=== PATIENT | female | born 1970 | race Caucasian/White ===

== ENCOUNTER 2020-06-06 14:37 | Emergency (ER) | payer BC ==
[2020-06-06 14:41] VITALS: BP 131/80; PULSE 99; RESP 16; TEMP 97.7
[2020-06-06] MEDS ORDERED: LIDOCAINE 1% INJ 10MG/ML (20 ML MDV) SQ ONE (14:50)
[2020-06-06] MEDS ORDERED: DIPH,PERTUS(ACELL)TETVAC-LF 0.5 ML VIAL IM ONE (15:00)
--- NOTE | 2020-06-06 15:00 | ED ---
Wound/Laceration HPI - General Chief Complaint: Wound/Laceration Stated Complaint: L Leg Injury Time Seen by Provider: 06/06/20 14:49 Source: patient Mode of arrival: wheelchair Limitations: no limitations - History of Present Illness Initial Comments: Patient is a 49-year-old female presenting to emergency Department with chief complaint of laceration. Patient states she was cleaning under vacuumed using a steak knife. Patient states she has no lacerated the anterior aspect of the left lower leg. Patient reports there was significant amount of bleeding which has since resolved. Patient states the amount of bleeding concerned her so she came to the ED. Patient states the pain is minimal at this time. Denies any blood thinners. Tetanus not up-to-date. Denies numbness or tingling. States this happened about one hour prior to arrival. - Related Data Allergies Allergy/AdvReac Type Severity Reaction Status Date / Time No Known Allergies Allergy Verified 06/06/20 14:38 Review of Systems ROS Statement: Those systems with pertinent positive or pertinent negative responses have been documented in the HPI. ROS Other: All systems not noted in ROS Statement are negative. Past Medical History Past Medical History: No Reported History History of Any Multi-Drug Resistant Organisms: None Reported Past Surgical History: No Surgical Hx Reported Past Psychological History: No Psychological Hx Reported Smoking Status: Never smoker Past Alcohol Use History: None Reported Past Drug Use History: None Reported General Exam Limitations: no limitations General appearance: alert, in no apparent distress Head exam: Present: atraumatic, normocephalic, normal inspection Eye exam: Present: normal appearance, PERRL, EOMI Pupils: Present: normal accommodation ENT exam: Present: normal exam, normal oropharynx, mucous membranes moist Neck exam: Present: normal inspection, full ROM. Absent: tenderness Respiratory exam: Present: normal lung sounds bilaterally. Absent: respiratory distress, wheezes, rales Cardiovascular Exam: Present: regular rate, normal rhythm, normal heart sounds Extremities exam: Present: full ROM. Absent: normal inspection (Once under laceration on the anterior aspect of the left lower trauma. This is very superficial mild. No sutures needed.), tenderness Back exam: Present: normal inspection, full ROM. Absent: tenderness Neurological exam: Present: alert, oriented X3 Psychiatric exam: Present: normal affect, normal mood Skin exam: Present: warm, dry, intact, normal color Course Vital Signs 06/06/20 14:38 Temperature 97.7 F Pulse Rate 99 Respiratory 16 Rate Blood Pressure 131/80 O2 Sat by Pulse 97 Oximetry Medical Decision Making - Medical Decision Making Patient 49-year-old female presenting to emergency department with chief complaint of a laceration. This is very superficial less than 1 cm in diameter. No active bleeding at this time. Tetanus updated. No sutures required at this time. Steri-Strips applied. Return parameters discussed. Case discussed with physician. Disposition Clinical Impression: Laceration Disposition: HOME SELF-CARE Condition: Stable Instructions (If sedation given, give patient instructions): Laceration (DC) Additional Instructions: Return to emergency department if symptoms worsen. Is patient prescribed a controlled substance at d/c from ED?: No Referrals: Talya Juarez MD [Primary Care Provider] - 1-2 days Time of Disposition: 15:04
== END 2020-06-06 15:35 | disposition home or self-care (01) ==
LOC: EC 14:37
DX: S81.812A Laceration without foreign body, left lower leg, initial encounter (principal); Z23 Encounter for immunization; W26.0XXA Contact with knife, initial encounter
CPT/HCPCS: 90471; 90715; 99282

== ENCOUNTER → 2020-06-08 | Outpatient (CLI) | payer BC ==
[2020-06-08 14:23] LABS: Basophils % (A) 1 %; Eosinophils # (A) 0.2 k/uL (0-0.7); Eosinophils % (A) 4 %; HCT 35.4 % (34.0-46.0); HGB 11.8 gm/dL (11.4-16.0); Lymphocytes # (A) 1.5 k/uL (1.0-4.8); Lymphocytes % (A) 33 %; MCH 28.8 pg (25.0-35.0); MCHC 33.5 g/dL (31.0-37.0); Mean Platelet Volume 8.3; Monocytes # (A) 0.2 k/uL (0-1.0); Monocytes % (A) 4 %; Neutrophils # (A) 2.5 k/uL (1.3-7.7); Neutrophils % (A) 56 %; Platelet Count 206 k/uL (150-450); RBC 4.11 m/uL (3.80-5.40); RDW 12.5 % (11.5-15.5); WBC 4.6 k/uL (3.8-10.6)
[2020-06-08 14:32] LABS: African American GFR (CKD) >90 (>60 ml/min/1.73 sqM); Anion Gap 9 mmol/L; Blood Urea Nitrogen 18 mg/dL (7-17); Carbon Dioxide 25 mmol/L (22-30); Chloride 107 mmol/L (98-107); Glucose 100 mg/dL (74-99); Non-African American GFR(CKD) 80 (>60 ml/min/1.73 sqM); Sodium 141 mmol/L (137-145)
== END | disposition home or self-care (01) ==
LOC: LABPAT 13:08
PROVIDERS: ATTEND Obstetrics & Gynecology
DX: Z01.818 Encounter for other preprocedural examination (principal); N92.0 Excessive and frequent menstruation with regular cycle; D25.9 Leiomyoma of uterus, unspecified
CPT/HCPCS: 36415; 80051; 82565; 82947; 84520; 85025; 87086

== ENCOUNTER 2020-06-14 05:49 | Day surgery (SDC) | payer BC ==
[2020-06-10 09:32] VITALS: BMI 25.8
--- NOTE | 2020-06-13 15:24 | HP ---
HISTORY AND PHYSICAL This is a 49-year-old white female who presents for hysterectomy. She has a known 14 week size uterus. She was consulted regarding the use of Depo Lupron, which she has refused to take secondary to the potential side effect of migraine headache. The patient after consultation requested vaginal hysterectomy as opposed to total abdominal hysterectomy. With this in mind, she did agree to one 3.75 mg shot of Lupron prior to the surgery to shrink the overall uterine dimensions and maximize the chance of successful vaginal surgery. She did receive that injection without issue. She has had a 10 pound vaginal delivery in the past. Sonogram on 04/20/2020 reviewed largest fibroid measuring 5.25 cm. PAST MEDICAL HISTORY: Significant for migraine headaches. PAST SURGICAL HISTORY: Negative. CURRENT MEDICATIONS: Amitriptyline 50 mg tab once at bedtime, Imitrex p.r.n., WELDER/INSTALLER Thyroid 60 mg daily, for 90 days. ALLERGIES: None known. FAMILY HISTORY: Significant for Alzheimer disease, lung cancer, diabetes, breast cancer. REPRODUCTIVE HISTORY: Normal spontaneous vaginal deliveries x2 in 1991, as well as 1998. SOCIAL HISTORY: Significant for current tobacco smoker, 1/2 pack per day. She is , her 's name is Efraín. She denies alcohol or drug use . On examination, patient is 5 foot 7.75 inches, 174 pounds, blood pressure 122/74. General physical examination, HEENT is negative, good dentition, no thyromegaly, no cervical lymphadenopathy. Chest is clear to auscultation in all adams anteriorly and posteriorly. Cardiac exam reveals regular rate and rhythm with no murmur, click, or rub. Abdomen is soft, nontender, active bowel sounds. No organ or splenomegaly. Breasts are bilaterally symmetric to inspection with no skin dimpling, nipple discharge, axillary adenopathy, or discernible lesions or masses. Extremities revealed no edema, good peripheral pulses, normal range of motion. On pelvic exam, external genitalia is well estrogenized. Cervix is multiparous, Pap smear is up to date and normal. Uterus is bulky, anteverted, anteflexed, approximately 12-14 week size. Adnexa are negative bilaterally. Rectal exam reveals good tone, FIT, negative stool. IMPRESSION: Enlarged fibroid uterus, with secondary menorrhagia requesting vaginal hysterectomy. PLAN: Patient understands that I will attempt vaginal hysterectomy at this time and anticipate a good result. She is amenable to abdominal hysterectomy, if clinically indicated. The ovaries will be inspected and left in situ if within normal limits to inspection. Risks, benefits, and alternatives have been thoroughly discussed, including bleeding, infection, perforation or damage to bowel, bladder, ureters, or indeed any pelvic or abdominal organs. The ACOG pamphlet has been given to the patient on this procedure, which she has reviewed and all questions have been addressed. MMODL / IJN: [id number] /
[~2020-06-14 05:49] MED LIST: DEXAMETHASONE SOD PHOSPHATE 10 MG/ML 1 ML VIAL IV ONE; MIDAZOLAM 2 MG/2 ML VIAL IV PRN; ONDANSETRON 4 MG/2 ML VIAL IVP ONE; SCOPOLAMINE 1.5MG/72HR PATCH TRANSDERM ONE
[2020-06-14] MEDS ORDERED: ONDANSETRON 4 MG/2 ML VIAL ONE ×2 (06:09→07:21)
[2020-06-14] MEDS: LACTATED RINGERS 1,000 ML IV SCH (06:12)
[2020-06-14] MEDS ORDERED: MIDAZOLAM 2 MG/2 ML VIAL IVP ONE (07:00)
[2020-06-14] MEDS ORDERED: MIDAZOLAM 2 MG/2 ML VIAL ONE (07:21)
[2020-06-14] MEDS ORDERED: PROPOFOL 10 MG/ML 20 ML VIAL IV ONE (07:21)
[2020-06-14] MEDS ORDERED: SUCCINYLCHOLINE CHLORIDE 100 MG/5 ML SYR IV ONE (07:21)
[2020-06-14] MEDS ORDERED: fentaNYL (PF) 50 MCG/ML 2 ML AMP ONE (07:21)
[2020-06-14] MEDS ORDERED: LIDOCAINE 1% INJ 10MG/ML (20 ML MDV) ONE (07:21)
[2020-06-14] MEDS ORDERED: VASOPRESSIN 20 UNIT/ML 1 ML VIAL SQ ONE ×2 (07:50→07:52)
[2020-06-14] MEDS ORDERED: BACITRACIN 500 UNIT/GM OINT 28.4 GM TUBE TOPICAL ONE (07:51)
[2020-06-14] MEDS ORDERED: diphenhydrAMINE 50 MG/ML 1 ML VIAL IVP PRN ×2 (07:58→09:47)
[2020-06-14] MEDS ORDERED: NALOXONE 0.4 MG/ML 1 ML VIAL IV PRN (07:58)
[2020-06-14] MEDS ORDERED: MORPHINE SULFATE 2 MG/ML SYRINGE IVP PRN (07:58)
[2020-06-14] MEDS ORDERED: LACTATED RINGERS 1,000 ML IV ONE (09:37)
[2020-06-14] MEDS ORDERED: ONDANSETRON 4 MG/2 ML VIAL IVP PRN (09:47)
[2020-06-14] MEDS ORDERED: SIMETHICONE 80 MG CHEWABLE PO PRN (09:47)
[2020-06-14] MEDS ORDERED: METOCLOPRAMIDE 5 MG/ML 2 ML VIAL IVP PRN (09:47)
[2020-06-14] MEDS ORDERED: IBUPROFEN 600 MG TAB PO PRN (09:47)
--- NOTE | 2020-06-14 09:47 | P.OP ---
Date of Procedure: 06/14/20 Preoperative Diagnosis: Enlarged fibroid uterus, menorrhagia Postoperative Diagnosis: 16 week size fibroid uterus, normal-appearing ovaries bilaterally Procedure(s) Performed: Vaginal hysterectomy Anesthesia: ARNALDOA Surgeon: Kate López Account General Manager #1: Subhash Robin Estimated Blood Loss (ml): 400 IV fluids (ml): 900 Urine output (ml): 100 Pathology: other (Cervix and uterus) Condition: stable Disposition: PACU Operative Findings: 16 week size fibroid uterus, ovaries appear normal to inspection bilaterally. Good vaginal cuff support. Description of Procedure: Patient is brought to the operating room where a general anesthetic is administered without difficulty after the placement of a spinal with Duramorph. Antibiotics are given. The cervix, vagina, perineal bodies are all prepped and draped in usual sterile fashion in the dorsal lithotomy position. The appropriate timeout is performed to assure proper patient and procedural identification. Bladder is drained for 100 mL of clear yellow urine. Weighted speculum was placed into the vagina. Anterior lip of the cervix is grasped with a double-tooth tenaculum. Cervix is injected circumferentially with a dilute Pi tressin solution. A [place] blade scalpel is used to incise the mucosa with a V positioning at 6:00. A sponge rolled finger is used to sweep the mucosa from the underlying fascial planes, at all times keep the bladder and ureters away from the operative field. Peritoneum is entered at 6:00 and suture tied with 2- 0 Vicryl. This is held with a hemostat. Large billed speculum was then placed into the peritoneal cavity. The right uterosacral cardinal ligament is identified, clamped cut and held with a hemostat. 0 Vicryl sutures used for the entire remaining case. Same procedure is carried out on the left uterosacral ligament. Uterine vasculature is identified, clamped cut and suture ligated. Vascular pedicles are large, and there is a fair amount of collateral circulation due to the large fibroids. 2 additional pedicles are taken superior to the vessels. The uterus is very enlarged and will not deliver vaginally. Therefore it is bivalved after the vasculature is secured. Care is taken to shell out multiple fibroids which are sent to pathology. In doing so, the uterus is decompressed. When it is adequately decompressed it is delivered posteriorly. The anterior peritoneum was then entered. The remaining infundibulopelvic ligaments are identified, clamped cut and suture ligated. These pedicles are flashed and retied for excellent hemostasis. A sponge stick is used in both ovaries are identified, they both appear normal to inspection and therefore are left in situ per the patient's wishes. The speculum is then changed to the shallow billed speculum. The 2-0 Vicryl suture is brought around in a pursestring fashion to close the peritoneum. The uterosacral cardinal ligaments are now brought across to incorporate the opposite ligament as well as vaginal mucosa. Several additional [id number] sutures of 0 Vicryl used for final cuff closure. Hemostasis is secure. The vagina is packed with a 1 inch iodophor gauze with basic tracing. Ashby catheter is noted to be draining clear urine. All sponge needle and enhancement counts are correct at the end of the procedure. Patient is brought back to the recovery room in very good condition with stable vital signs including a blood pressure 91/52, pulse 80. Total estimated blood loss 400 mL, fluid replacement 900 mL's.
[2020-06-14] MEDS: KETOROLAC 30 MG/ML 1 ML VIAL IVP PRN ×2 (09:56→19:27)
[2020-06-14] MEDS: HYDROmorphone 0.5 MG/0.5 ML SYRINGE IVP PRN ×2 (10:09→10:14)
[2020-06-14] MEDS: SENNOSIDES-DOCUSATE SODIUM 1 EACH TAB PO SCH (19:28)
[2020-06-15 03:53] VITALS: PULSE 85
[2020-06-15] MEDS: LACTATED RINGERS 1,000 ML IV SCH (06:24)
[2020-06-15] MEDS: SENNOSIDES-DOCUSATE SODIUM 1 EACH TAB PO SCH (07:20)
[2020-06-15 07:25] VITALS: BP 115/78; RESP 18; TEMP 98.2
--- NOTE | 2020-06-15 07:55 | P.DS ---
Providers Date of admission: 06/14/20 Expected date of discharge: 06/15/20 Attending physician: Kate López Primary care physician: [facility] Course: This is a 49-year-old white female who presented with an enlarged bulky fibroid uterus and menorrhagia. She received one dose of Lupron preoperatively. Her strong desire was for vaginal hysterectomy. After thorough consultation, we elected to proceed with same. Please see my history and physical for details. Patient was admitted yesterday and underwent a vaginal hysterectomy under my care. Ovaries appeared normal to inspection and were therefore left in situ. Patient did well intraoperatively, please see my dictated operative note for details. Vaginal packing was placed, Ashby catheter placed. Spinal with Duramorph was given. This morning the patient is doing very well. The Ashby catheter has been removed as well as the vaginal packing. There is no vaginal bleeding. The abdomen is soft, nontender, active bowel sounds. No CVA tenderness. Extremities are negative. Chest is clear. Patient is tolerating food and has passed flatus. She has remained afebrile with stable vital signs. She is judged to be in very good condition for discharge home. Patient will follow-up with me in the office in 2 weeks. I have reminded her no intercourse, tampons or douching. No heavy lifting. No driving for 2 weeks. She will use coml-vev-jruzven Advil or Aleve, or Motrin as needed for pain. She will call with any fevers shakes or chills, difficulties voiding, with any pain not alleviated by [id number] products, or indeed with any questions issues or concerns. Assessment: Doing well postoperative day #1 Patient Condition at Discharge: Good Plan - Discharge Summary Discharge Rx Participant: No New Discharge Prescriptions: No Action Amitriptyline HCl [Elavil] 50 mg PO HS Thyroid,Pork [Caustic Operator Thyroid] 60 mg PO QAM SUMAtriptan SUCCINATE [Imitrex] 100 mg PO DIRECTED PRN PRN Reason: Migraine Headache Magnesium 500 mg PO DAILY Fish Oil/Dha/Epa [Fish Oil 1,200 mg Fish Oil] 1 each PO DAILY Discharge Medication List Amitriptyline HCl [Elavil] 50 mg PO HS 06/08/20 [History] Fish Oil/Dha/Epa [Fish Oil 1,200 mg Fish Oil] 1 each PO DAILY 06/08/20 [History] Magnesium 500 mg PO DAILY 06/08/20 [History] SUMAtriptan SUCCINATE [Imitrex] 100 mg PO DIRECTED PRN 06/08/20 [History] Thyroid,Pork [Caustic Operator Thyroid] 60 mg PO QAM 06/08/20 [History] Follow up Appointment(s)/Referral(s): Kate López MD [STAFF PHYSICIAN] - 2 Weeks Activity/Diet/Wound Care/Special Instructions: Regular diet, avoid heavy greasy foods for a few days. Drink plenty of fluids. Activity as tolerated, rest as needed. No heavy lifting, nothing heavier than a gallon of milk. No pools, ponds, rosen, hot tubs, or bath tubs. You may shower. No intercourse. No house work, no vacuuming, no driving. Call Dr. López if you develop a fever or chills, increase in pain, heavy bleeding or clots from your vagina, inability to urinate, or if you have any other questions or concerns. Discharge Disposition: HOME SELF-CARE
--- NOTE | 2020-06-15 11:16 | P.PN ---
Progress Note - Text 06/15 710am 49-year-old female status post vaginal hysterectomy by Dr. Shaheen carlin. Patient had a spinal Duramorph for postop pain control with a VAS of 2 this morning. No complains of nausea vomiting or pruritus
== END 2020-06-15 09:25 | disposition home or self-care (01) ==
LOC: OR 05:49 → 6PED 09:36 → OR 06-15 09:25
PROVIDERS: ATTEND Obstetrics & Gynecology
DX: D25.9 Leiomyoma of uterus, unspecified (principal); G43.909 Migraine, unspecified, not intractable, without status migrainosus; F17.210 Nicotine dependence, cigarettes, uncomplicated; Z79.890 Hormone replacement therapy; Z79.899 Other long term (current) drug therapy; Z80.1 Family history of malignant neoplasm of trachea, bronchus and lung; Z80.3 Family history of malignant neoplasm of breast; Z83.3 Family history of diabetes mellitus; Z81.8 Family history of other mental and behavioral disorders; Z82.49 Family history of ischemic heart disease and other diseases of the circulatory system
CPT/HCPCS: 81025; 86900; 86901; 86850; 58260; J2250; J1200; J1100; J0690; J2405; J1885; J1170; 88307

== ENCOUNTER → 2024-03-16 | Outpatient (CLI) | payer BC ==
--- NOTE | 2024-03-16 23:42 | MM ---
Reason for Exam: Screening (asymptomatic). Last mammogram was performed 1 year(s) and 4 month(s) ago. Patient History: Menarche at age 13. First Full-Term at age 21. Postmenopausal. Mother had breast cancer. Risk Values: Monie 5 year model risk: 2.0%. NCI Lifetime model risk: 14.1%. Prior Study Comparison: 07/14/2020 Bilateral Screening Mammogram, Unknown. 09/28/2021 Bilateral Screening Mammogram, Unknown. 11/07/2022 Bilateral Screening Mammogram, Unknown. Tissue Density: There are scattered areas of fibroglandular density. Findings: Analyzed By CAD. The pattern is symmetrical. No significant interval changes are evident No suspicious groups of microcalcifications, spiculated or lobular masses, architectural distortion or other secondary signs of malignancy are mammographically apparent. Overall Assessment: Negative, BI-RAD 1 Management: Screening Mammogram of both breasts in 1 year. A negative mammogram report should not preclude additional follow up of suspicious palpable abnormalities. Patient should continue monthly self breast exam. A clinical breast exam by your physician is recommended on an annual basis and results should be correlated with mammographic findings. Electronically signed and approved by: Jules Morrison D.O. Radiologis
== END | disposition home or self-care (01) ==
LOC: RADMAMWWP 12:23
PROVIDERS: ATTEND Family Medicine
DX: Z12.31 Encounter for screening mammogram for malignant neoplasm of breast (principal); Z80.3 Family history of malignant neoplasm of breast; Z78.0 Asymptomatic menopausal state
CPT/HCPCS: 77063; 77067

== ENCOUNTER → 2025-04-16 | Outpatient (CLI) | payer OTHER ==
--- NOTE | 2025-04-16 13:21 | MM ---
Reason for Exam: Screening (asymptomatic). Last mammogram was performed 1 year(s) and 1 month(s) ago. Patient History: Menarche at age 13. First Full-Term at age 21. Postmenopausal. Mother had breast cancer. Risk Values: Monie 5 year model risk: 2.1%. NCI Lifetime model risk: 13.9%. Prior Study Comparison: 09/28/2021 Bilateral Screening Mammogram, Unknown. 11/07/2022 Bilateral Screening Mammogram, Unknown. 03/16/2024 Bilateral MG 3D screening mammo w/cad, [facility]. Tissue Density: The breasts are heterogeneously dense, which may obscure small masses. Findings: Analyzed By CAD. Benign-appearing right axillary lymph nodes are present. There is no suspicious group of microcalcifications or new suspicious mass in either breast. Overall Assessment: Negative, BI-RAD 1 Management: Screening Mammogram of both breasts in 1 year. . Patient should continue monthly self-breast exams. A clinical breast exam by your physician is recommended on an annual basis. This exam should not preclude additional follow-up of suspicious palpable abnormalities. Note on Monie scores and lifetime risk: 1. A Monie score greater than 3% is considered moderate risk. If this is the case, consider specialist referral to assess eligibility for a risk reducing agent. 2. If overall lifetime risk for the development of breast cancer is 20% or higher, the patient may qualify for future screening with alternating mammogram and breast MRI. [facility], , 04/16/2025 1:18 PM. Electronically signed and approved by: Oscar Zhou M.D.
== END | disposition home or self-care (01) ==
LOC: RADMAMWWP 12:41
PROVIDERS: ATTEND Family Medicine
DX: Z12.31 Encounter for screening mammogram for malignant neoplasm of breast (principal); R92.333 Mammographic heterogeneous density, bilateral breasts; Z78.0 Asymptomatic menopausal state; Z80.3 Family history of malignant neoplasm of breast
CPT/HCPCS: 77063; 77067

== ENCOUNTER 2025-06-15 08:00 | Day surgery (SDC) | payer BC, OTHER ==
[2025-06-15] MEDS: IV FLUID CONTINUATION 1,000 ML IV ONE (08:59)
[2025-06-15 09:07] VITALS: RESP 16; TEMP 97
[2025-06-15] MEDS: LACTATED RINGERS 1,000 ML IV SCH (09:15)
[2025-06-15] MEDS ORDERED: LIDOCAINE 2% (PF) 20 MG/ML 5 ML VIAL ONE (10:03)
[2025-06-15] MEDS ORDERED: PROPOFOL 10 MG/ML 20 ML VIAL IV ONE (10:03)
--- NOTE | 2025-06-15 10:19 | P.PCN ---
Date of Procedure: 06/15/25 Procedure(s) Performed: BRIEF HISTORY: Patient is a 54-year-old pleasant white female scheduled for an elective colonoscopy as a part of screening for colon cancer. PROCEDURE PERFORMED: Colonoscopy. PREOPERATIVE DIAGNOSIS: Screening for colon cancer. IV sedation per Anesthesia. PROCEDURE: After informed consent was obtained, the patient, was brought into the endoscopy unit. IV sedation was administered by Anesthesia under continuous monitoring. Digital rectal examination was normal. Initially the Olympus CF-160 flexible video colonoscope was then inserted in the rectum, gradually advanced into the cecum without any difficulty. Careful examination was performed as the scope was gradually being withdrawn. Ileocecal valve and the appendiceal orifice were visualized and appeared normal. Prep was excellent. Mucosa of the cecum, ascending colon, transverse colon, descending colon, sigmoid colon, and rectum appeared normal. Retroflexion was performed in the rectum and no lesions were seen. The patient tolerated the procedure well. IMPRESSION: Normal-appearing colon from rectum to cecum with no evidence of colorectal neoplasia Scattered sigmoid diverticulosis. RECOMMENDATIONS: Findings of this examination were discussed with the patient as well as her family. She was advised to have repeat screening colonoscopy in 10 years..
[2025-06-15 10:44] VITALS: BP 113/74; PULSE 65
== END 2025-06-15 10:54 | disposition home or self-care (01) ==
LOC: ORWHC2ENDO 08:00
PROVIDERS: ATTEND Internal Medicine Gastroenterology
DX: Z12.11 Encounter for screening for malignant neoplasm of colon (principal); K57.30 Diverticulosis of large intestine without perforation or abscess without bleeding
CPT/HCPCS: 45378; J2704; J2003